=== PATIENT | male | born 1960 ===

== ENCOUNTER → 2016-07-24 | Outpatient (CLI) | payer BC ==
[2016-07-24 14:05] LABS: ESTIMATED AVERAGE GLUCOSE 160 mg/dl; HA1C FLAG Normal (Normal)
== END | disposition home or self-care (01) ==
LOC: C.LABMFLN 10:05
PROVIDERS: ATTEND Family Medicine
DX: E11.49 Type 2 diabetes mellitus with other diabetic neurological complication (principal)